=== PATIENT | male | born 1995 | race Caucasian/White ===

== ENCOUNTER 2016-11-16 23:15 | Emergency (ER) | payer BC, MEDICAID ==
[2016-11-16] MEDS ORDERED: Hydromorphone 1 mg/ml Ampule IV ONE ×2 (23:17→23:58)
[2016-11-16] MEDS ORDERED: BENADRYL 50 MG/ML IV ONE (23:17)
[2016-11-16] MEDS ORDERED: Adacel Vial IM ONE ×2 (23:18→23:31)
[2016-11-16 23:30] LABS: BASOPHIL % 0.3 % (0.0-0.4); Eosinophil % 2.7 % (0.00-5.0); Granulocytes % 53.2 % (36.0-66.0); Lymphocytes % 36.7 % (24.0-44.0); Mean Cell Volume 89.9 fl (78-100); Monocytes % 7.1 % (0.0-12.0); Platelet Count 220 K/mm3 (150-450); Red Blood Count 4.96 M/mm3 (4.1-5.6); Red Cell Distribution Width 13.9 % (11.5-14.0); White Blood Count 7.8 K/mm3 (4.0-10.5)
[2016-11-16] MEDS ORDERED: BACIGUENT PACKET ONE (23:30)
[2016-11-16] MEDS ORDERED: Lactated Ringers 1,000 ML IV SCH (23:30)
[2016-11-16] MEDS ORDERED: Hydromorphone 1 mg/ml Ampule ONE (23:30)
[2016-11-16] MEDS ORDERED: Lactated Ringers 1,000 ML IV ONE (23:30)
[2016-11-16] MEDS ORDERED: BENADRYL 50 MG/ML ONE (23:30)
[2016-11-16] MEDS: BACIGUENT PACKET TP ONE (23:34)
[2016-11-16 23:38] LABS: VBG BASE EXCESS 2.2 (-2.0-2.0); VBG HCO3- 27.8 meq/L (22-28); VBG HEMOGLOBIN 14.7; VBG O2 SATURATION 74.3 (95-100); VBG POTASSIUM 3.8 (3.5-5.1); VBG pH 7.39 (7.32-7.42)
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
[2016-11-16 23:52] LABS: ALBUMIN 4.2 g/dL (3.4-5.0); ALKALINE PHOSPHATASE 90 U/L (46-116); ANION GAP 14.9 MEQ/L (5-15); BILIRUBIN,TOTAL 0.2 mg/dL (0.2-1.0); BLOOD UREA NITROGEN 19 mg/dL (9-20); CHLORIDE 104 mEq/L (98-107); Carbon Dioxide 26.7 mEq/L (21-32); Glucose 103 MG/DL (70-110); Potassium 3.6 mEq/L (3.5-5.1); SGOT/AST 21 U/L (15-37); SGPT/ALT 23 U/L (12-78); SODIUM 142 mEq/L (136-145); Total Protein 7.7 gm/dL (6.4-8.2)
[2016-11-17] MEDS ORDERED: Hydromorphone 1 mg/ml Ampule ONE
[2016-11-17] MEDS: BACIGUENT PACKET TP ONE (00:03)
[2016-11-17 00:14] VITALS: BP 145/61; PULSE 67; O2SAT 97
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
== END 2016-11-17 00:20 | disposition short-term general hospital (02) ==
LOC: ED 23:15
DX: T20.35XA Burn of third degree of scalp [any part], initial encounter (principal); T20.011A Burn of unspecified degree of right ear [any part, except ear drum], initial encounter; T20.07XA Burn of unspecified degree of neck, initial encounter; T20.02XA Burn of unspecified degree of lip(s), initial encounter; T21.01XA Burn of unspecified degree of chest wall, initial encounter; T23.129A Burn of first degree of unspecified single finger (nail) except thumb, initial encounter; X03.8XXA Other exposure to controlled fire, not in building or structure, initial encounter; W40.8XXA Explosion of other specified explosive materials, initial encounter
CPT/HCPCS: 36000; 36415; 71010; 80053; 82805; 85025; 90471; 90715; 96360; 96374; 96375; 99285; J1170; J1200

== ENCOUNTER 2017-10-11 16:38 | Emergency (ER) | payer BC ==
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
[2017-10-11 17:14] VITALS: BP 131/71; PULSE 84; O2SAT 99
== END 2017-10-11 17:14 | disposition home or self-care (01) ==
LOC: ED 16:38
PROC: 0YQQXZZ Repair Left 1st Toe, External Approach (ICD-10-PCS; principal; 2017-10-11)
DX: S91.112A Laceration without foreign body of left great toe without damage to nail, initial encounter (principal); W27.8XXA Contact with other nonpowered hand tool, initial encounter
CPT/HCPCS: 12002; 99283